=== PATIENT | male | born 1990 | race American Indian/Alaskan Native ===

== ENCOUNTER 2018-04-23 17:17 | Emergency (ER) | payer OTHER ==
[2018-04-23 17:29] VITALS: BP 124/96
--- NOTE | 2018-04-23 21:19 | Emergency Department Report ---
Minor Respiratory - HPI Chief Complaint: Eye Problems Stated Complaint: FLU LIKE SYMPTOMS Time Seen by Provider: 04/23/18 21:18 Duration: patient here reported cold symptoms and headache disorder going on for over a week. Pain Location: Other (headache) Severity: mild (3/10 achy and located to front of head.) Minor Respiratory: Yes Rhinorrhea (nasal congestion), Yes Able to Tolerate Fluids, Yes Cough (dry cough), No Sore Throat, No Ear Pain, No Sick Contacts, No Hemoptysis, No Chest Pain, No Shortness of Breath, No Fever Other History: Patient here reports that he is here because he has cold symptoms as been ongoing for over a week and he is not feeling better he's reporting that he's had headache over the last 2 days that comes and goes and is taking [id number] cold and cough medication and is not helping. Her port and dry cough with nasal congestion. Headache is located to front of his head and said that he feels like there is something stuck in his throat. Denies any shortness of breath or chest pain. He states that he is having hot flashes. Headache is 310, comes and goes and nothing makes it better and nothing makes it worse. In triage note it states the patient reported his daughter poked him in his right eye on but patient denies any vision change, eye pain and said that he is not here for his eye is here for his cold symptoms. Denies any blurred vision. He said he has redness to his eyes but it 's getting better. Tetanus vaccine is up-to-date. Denies any nausea vomiting. ED Review of Systems ROS: Stated complaint: FLU LIKE SYMPTOMS Other details as noted in HPI Constitutional: chills. denies: fever Eyes: other (eye injury that's resolved and). denies: eye pain, eye discharge, vision change ENT: congestion. denies: ear pain, throat pain, dental pain, epistaxis Respiratory: cough. denies: shortness of breath, SOB with exertion, SOB at rest , stridor, wheezing Cardiovascular: denies: chest pain, palpitations, edema, syncope Gastrointestinal: denies: abdominal pain, nausea, vomiting, diarrhea, constipation, hematemesis Musculoskeletal: denies: back pain, joint swelling, arthralgia, myalgia Skin: denies: rash, lesions Neurological: headache. denies: weakness, paresthesias, abnormal gait, vertigo ED Past Medical Hx - Past Medical History Previous Medical History?: No - Surgical History Past Surgical History?: No - Family History Family history: hypertension - Social History Smoking Status: Current Every Day Smoker Substance Use Type: None - Medications Home Medications: Home Medications Medication Instructions Recorded Confirmed Last Taken Type Amoxicillin [Amoxicillin TAB] 875 mg PO BID 7 Days #14 tablet 04/23/18 Unknown Rx Cetirizine HCl [Zyrtec] 10 mg PO QDAY 14 Days #14 tablet 04/23/18 Unknown Rx Fluticasone [Flonase] 1 spray NS QDAY 14 Days #1 bottle 04/23/18 Unknown Rx Minor Respiratory Exam - Exam General: Vital signs noted. No distress. Alert and acting appropriately. This is a 28-year-old male well-nourished well-developed in no acute distress HEENT: Yes Moist Mucous Membranes, Yes Frontal Tenderness (tender to palpate bilaterally), No Pharyngeal Erythema, No Pharyngeal Exudates, No Rhinorrhea ( uvula midline and oral airway is patent), No Conjuctival Injection, No Maxillary Tenderness Ear: Neither TM Bulge (congested), Neither TM Erythema, Neither EAC Pain, Neither EAC Discharge Neck: Yes Supple (full range of motion, no C-spine tenderness), No Adenopathy Lungs: Yes Good Air Exchange (clear to auscultation bilaterally, no rhonchi wheezes or rales), Yes Cough (dry cough), No Wheezes, No Ronchi, No Stridor, No Labored Respirations, No Retractions, No Use of Accessory Muscles, No Other Abnormal Lung Sounds Heart: Yes Regular (S1, S2), No Murmur Abdomen: Yes Normal Bowel Sounds (normal bowel sounds in all quadrants), No Tenderness (nontender to palpation in all quadrants.), No Peritoneal Signs Neurologic: Alert and oriented, no deficits. Alert and oriented 3, normal gait Musculoskeletal: Unremarkable. No clubbing, cyanosis or edema. +2 pulses to all extremities ED Course Vital Signs 04/23/18 17:26 Temperature 98.8 F Pulse Rate 103 H Respiratory 16 Rate Blood Pressure 124/96 O2 Sat by Pulse 99 Oximetry Apical pulse 92 bpm. - Reevaluation(s) Reevaluation #1: 04/23/18 22:59 Stable in ED ED Medical Decision Making - Medical Decision Making ED course Diagnoses 1: Acute sinusitis: Well discharge with amoxicillin, Zyrtec and Flonase 2: Cough and congestion-stable Visual acuity done and 20/20 all around. Patient does not have any eye symptoms but he said he had injured his eye and although he didn't request for his eyes to be examined since this mentioned in triage notes patient that he wasn't here to be treated for his eyes but visual acuity stable. Prescription for amoxicillin, Zyrtec and Flonase. Patient to follow up with primary care physician . Referral to [facility]. Discharge instruction given on medication, diagnosis and need for follow-up. To flush his nostrils out with saline nasal wash. Vital signs are stable and he is afebrile. Patient discharged home in stable condition from emergency room. Critical care attestation.: If time is entered above; I have spent that time in minutes in the direct care of this critically ill patient, excluding procedure time. ED Disposition Clinical Impression: Acute sinusitis Qualifiers: Sinusitis location: unspecified location Recurrence: not specified as recurrent Qualified Code(s): J01.90 - Acute sinusitis, unspecified Disposition: DC-01 TO HOME OR SELFCARE Is pt being admited?: No Does the pt Need Aspirin: No Condition: Stable Instructions: Sinusitis (ED) Additional Instructions: Please increase her fluid intake Flush nostrils with saline nasal spray take antibiotic as prescribed F/U with primary care physician as instructed Prescriptions: Amoxicillin [Amoxicillin TAB] 875 mg PO BID 7 Days #14 tablet Cetirizine HCl [Zyrtec] 10 mg PO QDAY 14 Days #14 tablet Fluticasone [Flonase] 1 spray NS QDAY 14 Days #1 bottle Referrals: PRIMARY CARE, [Primary Care Provider] - 2-3 Days [facility] [Outside] - 2-3 Days Forms: Work/School Release Form(ED)
== END 2018-04-23 23:00 | disposition home or self-care (01) ==
LOC: ED 17:17
DX: J01.10 Acute frontal sinusitis, unspecified (principal); F17.200 Nicotine dependence, unspecified, uncomplicated
CPT/HCPCS: 99282

== ENCOUNTER 2019-04-16 10:18 | Emergency (ER) | payer OTHER ==
[2019-04-16 10:36] VITALS: BP 100/71
--- NOTE | 2019-04-16 13:22 | Emergency Department Report ---
ED Back Pain/Injury HPI - General Chief Complaint: Back Pain/Injury Stated Complaint: LOWER BACK PAIN Time Seen by Provider: 04/16/19 12:42 Source: patient Limitations: No Limitations - History of Present Illness Initial Comments: 29-year-old male with history of chronic lower back pain presents to ED with exacerbation of back pain after pushing a heavy object at work 3 days ago. Patient denies numbness or weakness in the lower extremities. Has not taken any OTC pain medications Complaint: back pain -: days(s) (3) Similar Symptoms Previously: Yes Place: work Radiation: none Severity: mild Quality: aching Consistency: intermittent Improves With: immobilization Worsens With: movement Associated Symptoms: denies: weakness, numbness, difficulty walking - Related Data Previous Rx's Medication Instructions Recorded Last Taken Type Amoxicillin [Amoxicillin TAB] 875 mg PO BID 7 Days #14 tablet 04/23/18 Unknown Rx Cetirizine HCl [Zyrtec] 10 mg PO QDAY 14 Days #14 tablet 04/23/18 Unknown Rx Fluticasone [Flonase] 1 spray NS QDAY 14 Days #1 bottle 04/23/18 Unknown Rx Naproxen [Naprosyn] 500 mg PO BID #20 tablet 04/16/19 Unknown Rx methOCARBAMOL [Robaxin TAB] 500 mg PO Q8HR PRN #20 tablet 04/16/19 Unknown Rx Allergies Allergy/AdvReac Type Severity Reaction Status Date / Time No Known Allergies Allergy Verified 04/16/19 10:21 ED Review of Systems ROS: Stated complaint: LOWER BACK PAIN Other details as noted in HPI Comment: All other systems reviewed and negative Constitutional: denies: chills, fever Gastrointestinal: denies: abdominal pain Musculoskeletal: back pain Neurological: denies: weakness, numbness, paresthesias ED Past Medical Hx - Past Medical History Previous Medical History?: No - Surgical History Past Surgical History?: No - Social History Smoking Status: Current Every Day Smoker Substance Use Type: None - Medications Home Medications: Home Medications Medication Instructions Recorded Confirmed Last Taken Type Amoxicillin [Amoxicillin TAB] 875 mg PO BID 7 Days #14 tablet 04/23/18 Unknown Rx Cetirizine HCl [Zyrtec] 10 mg PO QDAY 14 Days #14 tablet 04/23/18 Unknown Rx Fluticasone [Flonase] 1 spray NS QDAY 14 Days #1 bottle 04/23/18 Unknown Rx Naproxen [Naprosyn] 500 mg PO BID #20 tablet 04/16/19 Unknown Rx methOCARBAMOL [Robaxin TAB] 500 mg PO Q8HR PRN #20 tablet 04/16/19 Unknown Rx ED Physical Exam - General Limitations: No Limitations General appearance: alert, in no apparent distress - Head Head exam: Present: atraumatic, normocephalic - Eye Eye exam: Present: normal appearance - ENT ENT exam: Present: mucous membranes moist - Neck Neck exam: Present: normal inspection - Respiratory Respiratory exam: Present: normal lung sounds bilaterally. Absent: respiratory distress - Cardiovascular Cardiovascular Exam: Present: regular rate, normal rhythm - GI/Abdominal GI/Abdominal exam: Present: soft. Absent: distended, tenderness - Extremities Exam Extremities exam: Present: normal inspection, full ROM - Back Exam Back exam: Present: normal inspection, full ROM, other (pt able to stand, bend over and touch toes without difficulty) - Neurological Exam Neurological exam: Present: alert, oriented X3, CN II-XII intact, normal gait. Absent: motor sensory deficit - Psychiatric Psychiatric exam: Present: normal affect, normal mood - Skin Skin exam: Present: warm, dry, intact, normal color ED Course Vital Signs 04/16/19 10:35 Temperature 98.2 F Pulse Rate 83 Respiratory 18 Rate Blood Pressure 100/71 O2 Sat by Pulse 99 Oximetry ED Medical Decision Making - Medical Decision Making - chronic back pain - nontender on exam - ROM intact - gait normal - no neuro deficits - outpt f/u advised - return precautions given - Differential Diagnosis chronic back pain Critical care attestation.: If time is entered above; I have spent that time in minutes in the direct care of this critically ill patient, excluding procedure time. ED Disposition Clinical Impression: Lumbosacral strain Disposition: DC- TO HOME OR SELFCARE Is pt being admited?: No Condition: Stable Instructions: Back Pain (ED) Prescriptions: Naproxen [Naprosyn] 500 mg PO BID #20 tablet methOCARBAMOL [Robaxin TAB] 500 mg PO Q8HR PRN #20 tablet PRN Reason: Muscle Spasm Referrals: [facility] [Provider Group] - 3-5 Days Time of Disposition: 13:21
== END 2019-04-16 13:34 | disposition home or self-care (01) ==
LOC: ED 10:18
DX: S39.012A Strain of muscle, fascia and tendon of lower back, initial encounter (principal); G89.29 Other chronic pain; F17.200 Nicotine dependence, unspecified, uncomplicated; X50.0XXA Overexertion from strenuous movement or load, initial encounter; Y93.89 Activity, other specified; Y92.69 Other specified industrial and construction area as the place of occurrence of the external cause; Y99.8 Other external cause status
CPT/HCPCS: 99282